=== PATIENT | male | born 1970 | race Caucasian/White ===

== ENCOUNTER 2019-06-10 21:24 | Emergency (ER) | payer OTHER ==
[~2019-06-10] VITALS: Ht 167.6 cm; Wt 75.3 kg
[~2019-06-10 21:24] MED LIST: PRED20TA PO
[2019-06-10 21:33] VITALS: BP 156/81; PULSE 58; RESP 18; Ht 167.6 cm; Wt 75.3 kg
[2019-06-10] MEDS ORDERED: predniSOLONE (3 MG/ML) CUP PO STA (22:22)
--- NOTE | 2019-06-10 22:32 | ERD ---
ER Documentation Chief Complaint Chief Complaint NUMBESS ON RIGHT CHECK LIKE HE HAD DENTAL WORK HPI Patient is a 48-year-old male presented to ED for right side face numbness. Patient states this is never happened to him before. Patient denies history of hypertension, diabetes, smoking. Patient denies any motor weakness and states he noticed the symptoms first this morning when he was brushing his teeth. The patient denies any allergies to medications. Patient denies any recent travels outside of the [facility]. The patient works in [place] and denies any recent sick contacts that he can recall. The patient denies pain at this time and states that she just more uncomfortable and he feels like the right side of his face is numb. ROS All systems reviewed and are negative except as per history of present illness. Medications Home Meds Active Scripts Prednisone* (Prednisone*) 20 Mg Tab, 60 MG PO DAILY for 7 Days, TAB Prov:TOSHA BRANNON PA-C 06/10/19 Allergies Allergies: Coded Allergies: No Known Allergy (Unverified , 06/10/19) PMhx/Soc Medical and Surgical Hx: pt denies Surgical Hx Hx Cardiac Disorders: Yes (HDL) Hx Alcohol Use: No Hx Substance Use: No Hx Tobacco Use: No Smoking Status: Never smoker FmHx Family History: No diabetes, No coronary disease, No other Physical Exam Vitals Vital Signs Date Temp Pulse Resp B/P (MAP) Pulse Ox O2 O2 Flow FiO2 Time Delivery Rate 06/10/19 98.1 58 18 156/81 98 21:33 (106) Physical Exam GENERAL: Mild distress HEENT: Patient has notable asymmetry to the right side of his face, patient cannot raise his right eyebrow but can close his right eye, patient has good EOM, patient has good reactive pupils with no signs of trauma. Patient has no pain to palpation to the mastoid process patient has no pain to palpation to the facial maxilla bones. The patient is able to swallow without difficulty NECK: C-spine is soft and supple. There is no meningismus. There is no cervical lymphadenopathy. CHEST: Clear to auscultation bilaterally. There are no rales, wheezes or rhonchi. HEART: Regular rate and rhythm. No murmurs, clicks, rubs or gallops. ABDOMEN:Soft, nontender and nondistended. Good bowel sounds. No rebound or guarding. No gross peritonitis. No gross organomegaly or masses. No Villareal sign or McBurney point tenderness. BACK: No midline or flank tenderness. EXTREMITIES: Equal pulses bilaterally. There is no peripheral clubbing, cyanosis or edema. No focal swelling or erythema. Full range of motion. Grossly neurovascularly intact. NEUROLOGIC: Alert and oriented, the patient intact cranial nerves II and III, patient has limited range of motion in the trigeminal nerve distribution on the right side of his face. Patient has no pronator drift and no lower extremity weakness Results 24 hrs Current Medications Medications Dose Sig/Jean Start Time Status Last (Trade) Ordered Route PRN Stop Time Admin Dose Reason Admin 60 mg ONCE STAT 06/10/19 DC 06/10/19 Prednisolone PO 22:22 06/10/19 22:32 (Prelone) 22:24 Procedures/MDM ED course: The patient was stable throughout the ED course. The patient and/or family informed of laboratory and diagnostic imaging results throughout the ED course. Medications given in ER: 60 mg prednisone Patient tolerated medication well with no adverse reactions. Patient reported improvement in pain. Medical decision makin-year-old male presenting to the ED with right side facial weakness. The patient has no history of diabetes, hypertension, does not smoke. The patient is not overweight. The patient has no family history of stroke. The patient symptoms are only affecting the right side of his face. The patient is unable to raise his right eyebrow but he can close his right eye he has mild facial droop on the right side he has no respiratory distress and is able to swallow liquids without difficulty. 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 The patient is able to ambulate without difficulty. 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 At this time the patient will be treated in the ED with high-dose prednisone along with a 7-day course of high-dose prednisone. At this time I have low suspicion for CVA, TIA. The patient did not suffer a traumatic head injury. At this time I have low suspicion for epidural hematoma, subdermal hematoma. Advised the patient that he needs to follow-up with his primary care provider in 1 to 2 days regarding this visit. Advised the patient if symptoms worsen he should return to ER immediately. The patient is in agreement the treatment plan and had no further questions upon discharge Prescription for home: Prednisone I have discussed with the patient proper use and common side effects to expert with the medication . I advised the patient/family to speak with the pharmacist dispensing the medication to be advised of any potential drug intera ctions with other medication or supplements they may be taking. Discharge: At this time, patient is stable for discharge and outpatient management. I have instructed the patient to follow-up with his\her primary care physician in 1 to 2 days. I have discussed with the patient the possibility of needing to see a specialist for further work-up and imaging studies if symptoms persist. I have instructed the patient to promptly return to the ER for any new or worsening symptoms including increased pain, fever, nausea, vomiting, weakness or LOC. The patient and\or family expressed understanding of and agreement with this plan. All questions were answered. Home care instructions were provided. Disclaimer: Inadvertent spelling and grammatical errors are likely due to EHR\dictation software use and do not reflect on the overall quality of patient care. Also, please note that the electronic time recorded on the note does not necessarily reflect the actual time of the patient encounter. Departure Diagnosis: Primary Impression: Garcia's palsy Condition: Stable Patient Instructions: Garcia's Palsy Referrals: [facility] YOU HAVE RECEIVED A MEDICAL SCREENING EXAM AND THE RESULTS INDICATE THAT YOU DO NOT HAVE A CONDITION THAT REQUIRES URGENT TREATMENT IN THE EMERGENCY DEPARTMENT. FURTHER EVALUATION AND TREATMENT OF YOUR CONDITION CAN WAIT UNTIL YOU ARE SEEN IN YOUR DOCTORS OFFICE WITHIN THE NEXT 1-2 DAYS. IT IS YOUR RESPONSIBILITY TO MAKE AN APPOINTMENT FOR FOLOW-UP CARE. IF YOU HAVE A PRIMARY DOCTOR --you should call your primary doctor and schedule an appointment IF YOU DO NOT HAVE A PRIMARY DOCTOR YOU CAN CALL OUR PHYSICIAN REFERRAL HOTLINE AT IF YOU CAN NOT AFFORD TO SEE A PHYSICIAN YOU CAN CHOSE FROM THE FOLLOWING [facility] [address] [facility] [address] [facility] [facility] [address] [facility] [address] [facility] [address] [facility]. [facility] [address] [facility] [facility] YOU HAVE RECEIVED A MEDICAL SCREENING EXAM AND THE RESULTS INDICATE THAT YOU DO NOT HAVE A CONDITION THAT REQUIRES URGENT TREATMENT IN THE EMERGENCY DEPARTMENT. FURTHER EVALUATION AND TREATMENT OF YOUR CONDITION CAN WAIT UNTIL YOU ARE SEEN IN YOUR DOCTORS OFFICE WITHIN THE NEXT 1-2 DAYS. IT IS YOUR RESPONSIBILITY TO MAKE AN APPOINTMENT FOR FOLOW-UP CARE. IF YOU HAVE A PRIMARY DOCTOR --you should call your primary doctor and schedule and appointment IF YOU DO NOT HAVE A PRIMARY DOCTOR YOU CAN CALL OUR PHYSICIAN REFERRAL HOTLINE AT . IF YOU CAN NOT AFFORD TO SEE A PHYSICIAN YOU CAN CHOSE FROM THE FOLLOWING [facility] INSTITUTIONS: [facility] [address] [place] [address] [facility] [address] [place], [place] [id number] [place] [address] [address] [place] [address] Additional Instructions: Call your primary care doctor TOMORROW for an appointment during the next 1-2 days.See the doctor sooner or return here if your condition worsens before your appointment time. TOSHA BRANNON PA-C Jun 10, 2019 22:32
== END 2019-06-10 22:58 | disposition home or self-care (01) ==
LOC: FTE 21:24
DX: G51.0 Bell's palsy (principal)
CPT/HCPCS: 99283; J7510